=== PATIENT | female | born 1970 | race Two or more races ===

== ENCOUNTER 2024-05-22 14:48 | Outpatient (AMB) | payer MEDICAID, SELFPAY ==
[2024-05-22 15:02] VITALS: BP 146/85; PULSE 77; RESP 18; TEMP 35.8; O2SAT 98; BMI 29.3
--- NOTE | 2024-05-22 15:02 | GSCOFFNT_ITS ---
Vital Signs - [facility] 05/22/24 15:02 Height 1.57 m Height Method Stated Weight 72.83 kg Weight Measurement Method Standing Scale BMI 29.3 BP 146/85 H Blood Pressure Source Automatic Cuff Blood Pressure Location Left Upper Arm Position Sitting Respiration 18 Pulse 77 Pulse Source Monitor Temp 96.5 F L Temp Source Temporal Artery Scan Pulse Oximetry (%) 98 Oxygen Delivery Method Room Air Med/Allergies Allergies & Medications Allergies No Known Allergies Allergy (Verified 05/22/24 15:03) Medication Reconciliation No Known Home Medications 05/22/24 [History Confirmed 05/22/24] MA Intake Visit Data Collection New Patient or Established: New Patient (never been to [facility]) Seen by Clinical Staff ONLY (RN/MA): No Reason for Visit:: REFERRAL HEMORRHOIDS Pain Present Currently: No Java Application Engineer Required: No PCP or OBGYN visit in last 3 months: Yes Hx Now: No Do You Feel Safe at Home: Yes Authorities Contacted: N/A Smoking Status Smoking Status: Never smoker Immunization / Flu Flu Vaccine in the Last 12 Months: No Flu Vaccine Exclusion Criteria: No Exclusion Criteria Past Medical History Social History SMOKING STATUS: Smoking status: Never smoker HPI HPI Narrative 53F presenting with symptomatic hemorrhoids. Pt reports she has had symptoms since her first years ago, with discomfort and bleeding. She states her BMs are soft and regular without any straining or diarrhea; she has tried creams and sitz baths and feels that nothing provides relief. She denies any changes in stool caliber, anorexia and unintentional weight loss; she has never had a colonoscopy PMH: Migraines PSHx: Csections Meds: Ibuprofen PRN, lidocainelidocaine-hydrocort cream Allergies: NKDA Social hx: Nonsmoker Family hx: No known malignancy Objective/Exam General General Appearance: alert, cooperative and well groomed Resp Respiratory exam: Absent respiratory distress Rectal Rectal exam: Present other (circumferential external hemorrhoids, normal JOSE ELIAS, internal hemorrhoid on anoscopy) Assessment & Plan Diagnosis / Problem List (1) Hemorrhoids with complication: Status: Acute Assessment & Plan: 53F with longstanding hemorrhoids, in the setting of healthy bowel habits who has tried conservative measures. I explained that because of her healthy bowel habits it is reasonable to pursue surgery; I explained risks of THD including bleeding, infection, severe pain, difficulty urinating and persistence/recurrence of hemorrhoids. Pt expressed understanding and would like to proceed. Additionally since she has not had screening I recommended colonoscopy and enumerated risks including bleeding, perforation and/or the need to abort prematurely for safety; again pt expressed understanding and agrees to proceed Plan: Colonoscopy, THD in OR [facility] Office Procedures GNS Level of Care Nursing/Assessment Patient Status: Initial/New Patient Nursing Assessment/Reassesment: Medication Reconciliation, Update PMH in EMR and Vital Signs Coordination of Care: Complex Care and Chronic Disease 1-5, Consent,records obtained, informed consent, Education Simp Pt/Fam, Results/Orders obtained and Staff clarify orders New Patient Charge New Patient Point Assignment: [id number] New Patient Point Charge: HEDIS REGISTERED NURSE RN Level 3 ([id number]) Patient Portal Questionaires Social History Tobacco History Smoking Status: Never smoker Domestic Abuse History Do You Feel Safe at Home: Yes Review of Systems Report any current symptoms Only answer those that you have currently: Past Medical History Past Medical History Have you ever been diagnosed with any of the following:
== END 2024-05-22 15:26 | disposition home or self-care (01) ==
LOC: HODSRG 14:48
PROVIDERS: PCP Nurse Practitioner Family; Referring Provider Nurse Practitioner Family; Supervising Provider Surgery; Visit Provider Surgery
DX: K64.8 Other hemorrhoids (principal)
CPT/HCPCS: 99203; G0463

== ENCOUNTER 2024-06-04 05:40 | Day surgery (SDC) | payer MEDICAID, SELFPAY ==
[2024-06-03 08:53] VITALS: BMI 29.2
[2024-06-03 10:49] LABS: Basophils # (Auto) 0.1 Thou/mm3 (0.0-0.2); Basophils % (Auto) 1 % (0-2.5); Eosinophils # (Auto) 0.2 Thou/mm3 (0.0-0.5); Eosinophils % (Auto) 3 % (0-10); Hemoglobin 13.3 g/dL (12.0-16.0); Immature Granulocytes % (Auto) 1 % (0-0); Immature Granulocytes Auto 0.03 Thou/mm3 (0.00-0.00); Lymphocytes # (Auto) 1.9 Thou/mm3 (1.0-4.8); Lymphocytes % (Auto) 34 % (10-50); Mean Corpuscular HGB Conc 34.1 g/dl (31.0-37.0); Mean Corpuscular Hemoglobin 28.9 pg (25.0-35.0); Mean Corpuscular Volume 85 fL (80-100); Monocytes # (Auto) 0.4 Thou/mm3 (0.0-0.8); Monocytes % (Auto) 8 % (0-12); Neutrophils # (Auto) 3.1 Thou/mm3 (1.8-7.7); Neutrophils % (Auto) 55 % (37-80); Nucleated Red Blood Cell % 0 /100 WBC (0); Platelet Count 292 Thou/mm3 (140-440); RDW Standard Deviation 42.9 fL (36.4-46.3); White Blood Count 5.7 Thou/mm3 (3.6-11.0)
[2024-06-03 10:58] LABS: Partial Thromboplastin Time 29.8 Seconds (22.0-36.0); Prothrombin Time 10.9 Seconds (9.0-12.2)
[2024-06-03 11:03] LABS: Anion Gap 7 (7-16); BUN/Creatinine Ratio 18 Ratio (12-20); Blood Urea Nitrogen 14 mg/dL (9-23); Calcium 9.8 mg/dL (8.3-10.6); Carbon Dioxide 26.9 mMol/L (20.0-31.0); Chloride 108 mMol/L (98-107); Creatinine (Component) 0.8 mg/dL (0.6-1.3); Estimated Creatinine Clearance 74.9 mL/min (>60); Glucose 101 mg/dL (74-106); Osmolality,Calculated 283 (275-295); Sodium 142 mMol/L (136-145); eGFR > 60 See Note
[2024-06-03 11:05] LABS: HCG,Qualitative Serum Negative
[2024-06-04] VITALS (10 sets, daily range): BP systolic 117–164; BP diastolic 61–107; PULSE 64–80; RESP 12–20; TEMP 36.1–36.4; O2SAT 97–100; BMI 29.0
[2024-06-04] MEDS: RINGERS LACTATED 1000 ML 1,000 ML 20 ML IV (06:39)
--- NOTE | 2024-06-04 08:55 | SUR.PHASEI ---
pt arrived to PACU via gurney drowsy but arouses to verbal commands, breathing unlabored, dressing to rectal area clean, dry, and intact with mesh underwear in place, report from Meli GALVAN and Dr Lowry
--- NOTE | 2024-06-04 09:02 | PD.SUROPNT ---
Date of Procedure 06/04/24 Pre Op Diagnosis Symptomatic hemorrhoids Post Op Diagnosis Same Procedure Colonoscopy, transanal hemorrhoidal dearterialization Findings Internal and external hemorrhoids, rectal polyp Procedure Description After discussion of risks and benefits, patient was brought to the operating room, SCDs were placed and general anesthesia was induced. She was first placed in left lateral decubitus position and after timeout, a colonoscopy was performed which was dictated separately. After colonoscopy patient was placed in lithotomy position with proper padding and was prepped and draped in the usual sterile fashion. Transanal hemorrhoidal dearterialization was undertaken at the 1, 3, 5, 7, 9, and 11:00 positions. Because of external hemorrhoids, mucopexy was also performed at the 1, 7 and 9:00 positions. Left and right pudendal nerve blocks were performed as well as a local block for total of 30 cc of half percent Marcaine. Patient was returned to supine position and extubated without complication. She was brought to PACU in stable condition Pathology / specimen Other (Rectal polyp) Estimated Blood Loss 20 Surgeon Cheryl Martin MD Surgical Staff Operation Date: 06/04/24 07:30 Case Staff Anesthesiologist: Romero Lowry
--- NOTE | 2024-06-04 09:05 | ESDS_ITS ---
Planned Discharge Date 06/04/24 DS: Providers Provider Primary care physician: Mickey Elias MD Attending Provider on Admission: Cheryl Martin MD Attending Provider on DC: Cheryl Martin MD Discharging Provider: Cheryl Martin MD Diagnosis Problem List Completed Was Problem List Reviewed/Reconciled?: Yes Exam Vital Signs Temp Pulse Resp BP Pulse Ox 97.6 F 64 12 164/86 H 98 06/04/24 06:32 06/04/24 06:32 06/04/24 06:32 06/04/24 06:32 06/04/24 06:32 Constitutional Constitutional: no acute distress Routine Respiratory Exam Respiratory: Present no resp distress Discharge Plan Plan Patient Disposition: HOME (Self Care) Prescriptions/Referrals Prescriptions/Med Rec: New oxycodone-acetaminophen [Percocet] 5-325 mg tablet 1 tab PO Q6H MDD 6 tabs PRN (Reason: pain) Qty: 30 0RF Rx Instructions: Hemorrhoid surgery 06/04 docusate sodium [Colace] 100 mg capsule 100 mg PO QDAY PRN (Reason: constipation) Qty: 30 0RF ibuprofen 600 mg tablet 600 mg PO Q6H PRN (Reason: pain) Qty: 30 0RF Referrals: Mickey Elias MD [Primary Care Provider] - Cheryl Martin MD [Physician] - (You will receive a phone call to confirm a follow-up appointment with me in 6 weeks) Patient/Caregiver Discharge Instructions Other Discharge Activity Instructions:: Avoid constipation and diarrhea You may resume sitz baths as needed up to 3 times daily starting tomorrow 06/05 You may take ibuprofen in between doses of Percocet as needed for pain If you develop difficulty urinating, fever, worsening pain or bleeding please seek care in ER Education Materials: Eating a High-Fiber Diet, Discharge Instructions for ..., Treating Hemorrhoids: Surgery, Taking a Sitz Bath Print Language: Albanian Stand Alone Forms: Princess Award Info., Patient Portal Info Letter Discharge Order Discharge Orders: Discharge (Routine); Ordered 06/04/24 Ordered By: Cheryl Martin Results Results: Laboratory Laboratory results: results reviewed Procedures Procedure Date 06/04/24 Procedures Colonoscopy, transanal hemorrhoidal dearterialization
[2024-06-04] MEDS: fentaNYL CIT INJ 50 mCg/ML AMP 2ML 25 MCG IV ×3 (09:17→09:30)
[2024-06-04] MEDS: ACETAMINOPHEN IVPB 1,000 MG/100 ML VIAL 250 MG IV (09:24)
[2024-06-04] MEDS: HYDROmorphone INJ 2 MG/ML VIAL 0.4 MG IVP ×3 (09:39→10:11)
--- NOTE | 2024-06-04 10:38 | SUR.PHASEII ---
pt awake, alert, able to follow commands, breathing unlabored, dressing to rectal area clean, dry, and intact with mesh underwear in place, discharge instructions given with son present, pt able to dress self and ambulate to wheelchair with steady gait, pt discharged via wheelchair with all belongings and copies of discharge paperwork
== END 2024-06-04 10:38 | disposition home or self-care (01) ==
PROVIDERS: Anesthesiology; PCP Family Medicine; Referring Provider Surgery; Visit Provider Surgery
PROC: (CPT 46948; principal; 2024-06-04 07:30)
PROC: 0DJD8ZZ Inspection of Lower Intestinal Tract, Via Natural or Artificial Opening Endoscopic (ICD-10-PCS; CPT 45378; 2024-06-04 07:30)
DX: K64.8 Other hemorrhoids (principal); K64.4 Residual hemorrhoidal skin tags; K62.1 Rectal polyp
CPT/HCPCS: 45378; 46948; 36415; 80048; 84703; 85025; 85610; 85730; A4217; A4649; J0131; J0461; J1100; J1885; J2250; J2405; J2704; J3010; J3490; J7120

== ENCOUNTER 2024-07-14 09:53 | Outpatient (AMB) | payer MEDICAID, SELFPAY ==
[2024-07-14 10:06] VITALS: BP 120/79; PULSE 73; RESP 18; TEMP 35.9; O2SAT 97; BMI 29.5
--- NOTE | 2024-07-14 10:06 | PD.GSCLVISIT ---
Vital Signs - [facility] 07/14/24 10:06 Height 1.57 m Height Method Stated Weight 72.631 kg Weight Measurement Method Standing Scale BMI 29.5 BP 120/79 Blood Pressure Source Automatic Cuff Blood Pressure Location Left Upper Arm Position Sitting Respiration 18 Pulse 73 Pulse Source Monitor Temp 96.6 F L Temp Source Temporal Artery Scan Pulse Oximetry (%) 97 Oxygen Delivery Method Room Air Med/Allergies Allergies & Medications Allergies No Known Allergies Allergy (Verified 07/14/24 10:07) Medication Reconciliation docusate sodium 100 mg capsule (Colace) 100 mg PO QDAY PRN constipation #30 caps 06/04/24 [Rx Confirmed 07/14/24] ibuprofen 600 mg tablet 600 mg PO Q6H PRN pain #30 tabs 06/04/24 [Rx Confirmed 07/14/24] oxycodone-acetaminophen 5 mg-325 mg tablet (Percocet) 1 tab PO Q6H PRN pain #30 tabs 06/12/24 [Rx Confirmed 07/14/24] MA Intake Visit Data Collection New Patient or Established: Established Patient (seen at [facility] within 3 years) Seen by Clinical Staff ONLY (RN/MA): No Reason for Visit:: THD/COLONOSCOPY F/U Pain Present Currently: No Tanner Rotary Drum Continuous Process Required: No PCP or OBGYN visit in last 3 months: Yes Hx Now: No Do You Feel Safe at Home: Yes Authorities Contacted: N/A Smoking Status Smoking Status: Never smoker Immunization / Flu Flu Vaccine in the Last 12 Months: Yes Flu Vaccine Exclusion Criteria: Already Received Past Medical History Past Medical History NEUROLOGIC: Negative Neurological Disorders or Seizures CARDIAC: Positive Varicose Veins; Negative Cardiac Disorders or Congestive Heart Failure RESPIRATORY: Positive Tuberculosis (was medicated yrs ago); Negative Chronic Obstructive Pulmonary Disease (COPD) GASTROINTESTINAL: Negative Gastrointestinal Disorders or Hepatitis GENITOURINARY: Negative Genitourinary Disorders or Renal Disease REPRODUCTIVE: Positive Previous Pregnancies (5) ENDOCRINE: Negative Endocrine Disorders, Diabetes Mellitus Type 1 or Diabetes Mellitus Type 2 HEMATOLOGIC: Positive Blood Disorders and Anemia OTHER HISTORY: Positive Chicken Pox; Negative Autoimmune Disease, Shingles, Blood Transfusions, Blood Transfusion Reaction, Anesthesia Reactions or Cancer Family History FAMILY HISTORY: Positive Family Cardiac Disorders; Negative Family Psychiatric Problems, Family Respiratory Disorders, Family Gastrointestinal Problems, Family Cancer, Family Surgery or Family Anesthesia Reaction Surgical History SURGICAL: Positive Eye Surgery (laser) and Section (x2) Social History SMOKING STATUS: Smoking status: Never smoker ALCOHOL: Alcohol Intake: Never HOUSING: Housing: House HPI HPI Narrative 53F who presented with longstanding symptomatic hemorrhoids s/p colonoscopy and THD 06/04/24 here for planned follow up. Pt reports feeling well overall with no pain, no bleeding or itching. She does still notice some swelling in the area but otherwise has no complaints, and is continuing to have soft regular BMs ROS Review of Systems Systems Reviewed: All systems reviewed, normal except as documented Objective/Exam General General Appearance: alert, cooperative and well groomed Resp Respiratory exam: Absent respiratory distress Results Colonoscopy report and pathology of polyp reviewed Assessment & Plan Diagnosis / Problem List (1) Hemorrhoids with complication: Status: Acute Assessment & Plan: 53F s/p colonoscopy and THD 06/04/24, recovering well. I explained that because her polyp was hyperplastic her next colonoscopy will be due in 10 years. All questions were answered and pt is encouraged to reach out as needed with concerns or questions Office Procedures GNS Level of Care Nursing/Assessment Patient Status: Established Patient Nursing Assessment/Reassesment: Medication Reconciliation, Update PMH in EMR and Vital Signs Coordination of Care: Complex Care and Chronic Disease 1-5, Consent,records obtained, informed consent, Education Simp Pt/Fam, Results/Orders obtained and Staff clarify orders Established Patient Charge Established Patient Point Assignment: 90 Established Patient Point Charge: EP Level 3 (80-115) Patient Portal Questionaires Social History Living Situation History Housing: House Tobacco History Smoking Status: Never smoker Alcohol History Alcohol Intake: Never Domestic Abuse History Do You Feel Safe at Home: Yes Review of Systems Report any current symptoms Only answer those that you have currently: Past Medical History Past Medical History Have you ever been diagnosed with any of the following: Neurological Problems Seizures: No Cardiology Problems Congestive Heart Failure: No Varicose Veins: Yes Respiratory Problems Chronic Obstructive Pulmonary Disease (COPD): No Tuberculosis: Yes (was medicated yrs ago) Stomache/Intestinal Problems Hepatitis: No Genital/Urinary Problems Renal Disease: No Reproductive Problems Previous Pregnancies: Yes (5) Endocrine Problems Diabetes Mellitus Type 1: No Diabetes Mellitus Type 2: No Blood Problems Anemia: Yes Other Problems Autoimmune Disease: No Shingles: No Blood Transfusions: No Blood Transfusion Reaction: No Anesthesia Reactions: No Chicken Pox: Yes Cancer: No
== END 2024-07-14 10:11 | disposition home or self-care (01) ==
LOC: HODSRG 09:53
PROVIDERS: PCP Family Medicine; Referring Provider Family Medicine; Supervising Provider Surgery; Visit Provider Surgery
DX: Z48.815 Encounter for surgical aftercare following surgery on the digestive system (principal); K64.8 Other hemorrhoids; K63.5 Polyp of colon
CPT/HCPCS: 99213; G0463